=== PATIENT | female | born 1980 | race Caucasian/White ===

== ENCOUNTER 2022-05-05 09:12 | Outpatient (CLI) | payer OTHER ==
[2022-05-05] MEDS ORDERED: GADOBUTROL 10 MMOL/10 ML VIAL ONE (09:24)
[2022-05-05] MEDS ORDERED: GADOBUTROL 10 MMOL/10 ML VIAL IVP ONE (10:25)
--- NOTE | 2022-05-05 11:42 | MRI Report ---
PROCEDURE: Foot LT W/WO INDICATIONS: PALPABLE LUMP LEFT FOOT CONTRAST: IV CONTRAST: Gadavist ml: 10 TECHNIQUE: Noncontrast coronal T1 spin echo and STIR, sagittal T1 spin echo with fat saturation and STIR, axial T1 spin echo and T2 fast spin echo with fat saturation. After the administration of contrast, axial/ sagittal/coronal T1 spin echo with fat saturation through the forefoot. COMPARISON: None. FINDINGS: Image quality: Excellent. Bones: There is mild T2 signal elevation within the medial and lateral sesamoids of the first metatar richard. The visualized bone marrow demonstrates otherwise normal signal on all sequences. The overlying cortex appears intact. No abnormal intraosseous enhancement. Soft tissues: There is a focal region of soft tissue signal intensity at the medial and plantar aspec t of the first metatarsal head, measuring roughly 10 mm transverse by 15 mm anteroposterior (series 7 image 20, 3/)7, which demonstrates mild T2 signal elevation and postcontrast enhancement. The scann ed muscles demonstrate normal overall bulk and internal signal. Subcutaneous tissues appear normal a s well. No abnormal soft tissue enhancement. There is a small amount of fluid interposed between th e first and second, second and third, third and fourth metatarsal heads. IMPRESSION: 1. Intermetatarsal bursitis. 2. Findings consistent with mild sesamoid dysfunction involving the first metatarsal sesamoids. 3. Focal soft tissue focus at the plantar aspect of the first metatarsal head, which has an appearanc e most suggestive of scarring, possibly secondary to chronic inflammation or remote injury. Continued clinical follow-up is recommended to exclude developing neoplasm in this location. Repeat imaging in 3 months could be performed with and without intravenous contrast, if clinically warranted. Reviewed by: Marie Musa MD on 05/05/2022 10:41 AM DEEPTI Approved by: Marie Musa MD on 05/05/2022 10:41 AM DEEPTI Station ID: [id number]
== END 2022-05-05 09:13 | disposition home or self-care (01) ==
LOC: DI 09:12
PROVIDERS: ATTEND Podiatrist
DX: M71.9 Bursopathy, unspecified (principal); R22.42 Localized swelling, mass and lump, left lower limb
CPT/HCPCS: 73720; A9585

== ENCOUNTER 2023-03-03 07:48 | Outpatient (CLI) | payer OTHER ==
[2023-03-03 11:53] LABS: BASOPHILS # (AUTO) 0.1 10^3/uL (0.0-0.1); BASOPHILS % (AUTO) 0.8 %; EOSINOPHILS # (AUTO) 0.1 10^3/uL (0.0-0.7); EOSINOPHILS % (AUTO) 1.9 %; HCT - HEMATOCRIT 38.7 % (37.0-47.0); HGB - HEMOGLOBIN 11.7 g/dL (12.0-16.0); LYMPHOCYTES # (AUTO) 2.3 10^3/uL (1.5-3.5); LYMPHOCYTES % (AUTO) 36.3 %; MEAN CORPUSCULAR HEMOGLOBIN 24.7 pg (27.0-31.0); MEAN CORPUSCULAR HGB CONC 30.2 g/dL (32.0-36.0); MEAN CORPUSCULAR VOLUME 81.6 fL (81.0-99.0); MONOCYTES # (AUTO) 0.6 10^3/uL (0.0-1.0); MONOCYTES % (AUTO) 9.6 %; NEUTROPHILS # (AUTO) 3.3 10^3/uL (1.5-6.6); NEUTROPHILS % (AUTO) 51.2 %; PLT - PLATELET COUNT 268 10^3/uL (130-450); RED BLOOD COUNT 4.74 10^6/uL (4.20-5.40); RED CELL DISTRIBUTION WIDTH 16.8 % (12.0-15.0); WHITE BLOOD COUNT 6.5 x10^3/uL (4.8-10.8)
[2023-03-03 12:15] LABS: ALBUMIN 4.2 g/dL (3.2-5.5); ALBUMIN/GLOBULIN RATIO 1.7 (1.0-2.2); ALKALINE PHOSPHATASE 55 IU/L (42-121); ALT ALANINE AMINOTRANSFERASE 22 IU/L (10-60); AST ASPARTATE AMINOTRANSFERASE 15 IU/L (10-42); BILIRUBIN,TOTAL 0.6 mg/dL (0.2-1.0); BUN - BLOOD UREA NITROGEN 16 mg/dL (6-20); CALCIUM 8.7 mg/dL (8.5-10.3); CARBON DIOXIDE - CO2 25 mmol/L (21-32); CHLORIDE 107 mmol/L (101-111); CHOL/HDL RATIO 3.8 (<4.4); CHOLESTEROL 226 mg/dL; CREATININE 0.7 mg/dL (0.4-1.0); GFR - MDRD 91 (>89); GLUCOSE 97 mg/dL (70-100); HDL CHOLESTEROL 60 mg/dL; LDL CHOLESTEROL,CALCULATED 148 mg/dL; LDL/HDL RATIO 2.5 (<4.4); POTASSIUM 4.1 mmol/L (3.5-5.0); SODIUM 138 mmol/L (135-145); TOTAL PROTEIN 6.7 g/dL (6.7-8.2); TRIGLYCERIDES 91 mg/dL; VLDL CHOLESTEROL 18 mg/dL
[2023-03-03 12:24] LABS: THYROID STIMULATING HORMONE 0.84 uIU/mL (0.34-5.60)
[2023-03-03 12:27] LABS: FREE T4 (FREE THYROXINE) 0.84 ng/dL (0.58-1.64)
[2023-03-03 12:30] LABS: PROLACTIN 9.05 ng/mL
[2023-03-03 12:52] LABS: FOLLICLE STIMULATING HORMONE 4.51 mIU/mL
== END 2023-03-03 07:49 | disposition home or self-care (01) ==
LOC: LAB.N 07:48
PROVIDERS: ATTEND Physician Assistant
DX: N95.1 Menopausal and female climacteric states (principal); R23.2 Flushing; L65.9 Nonscarring hair loss, unspecified; Z13.220 Encounter for screening for lipoid disorders
CPT/HCPCS: 36415; 80053; 80061; 83001; 83721; 84146; 84439; 84443; 84702; 85025